=== PATIENT | female | born 2000 | race Caucasian/White ===

== ENCOUNTER → 2019-08-29 | Day surgery (SDC) | payer SELFPAY ==
[~2019-08-29] MED LIST: Bupivacaine 0.25% HCL 30 ML VIAL ONE; Dexamethasone 20 MG/5 ML VIAL ONE; Fentanyl 100 MCG/2 ML VIAL ONE; HYDROcodone/Acetaminophen 5/325 mg Tablet ONE; Lidocaine 1% PF 5 ML VIAL ONE; Lidocaine 1% w/Epinephrine 1:100K 20 ML VIAL ONE; Meperidine HCl/PF 25 MG/ML VIAL ONE; Ondansetron PF 4 MG/2 ML Vial ONE; PROPOFOL 200 MG/20 ML VIAL ONE; Succinylcholine Chloride 20 MG/ML 10 ml SYRINGE FS ONE
--- NOTE | 2019-08-29 20:34 | HP ---
CHIEF COMPLAINT: Right lower quadrant abdominal pain. HISTORY OF PRESENT ILLNESS: The patient is a 19-year-old female. She was seen at an outside facility where she underwent laboratory and radiologic studies. Although I have not seen the CT scan, verbal report from the emergency room physician is that there was evidence of a retrocecal appendix with stranding and inflammation and enlargement consistent with acute appendicitis. White blood cell count was elevated at 13,000. She is accepted in transfer from this facility for planned appendectomy. She tells me that she has had some degree of abdominal cramping or discomfort for about 4 days. It became much worse last night prompting her ER visit. She denies any vomiting or diarrhea. PAST MEDICAL HISTORY: None. PAST SURGICAL HISTORY: [place] tooth extraction. MEDICATIONS: None. ALLERGIES: NO KNOWN DRUG ALLERGIES. PERSONAL AND SOCIAL HISTORY: She is single with no children. She does not smoke and drinks alcohol occasionally. 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 Her boyfriend did ride here to the hospital this evening. REVIEW OF SYSTEMS: Otherwise unremarkable. FAMILY HISTORY: Noncontributory. PHYSICAL EXAMINATION: VITAL SIGNS: She is afebrile. Vital signs within normal limits. GENERAL: She is a well-developed, well-nourished, pleasant female, in no acute distress. She is 5 feet 3 inches tall, weighs 115 pounds. She is alert and oriented x3. HEAD, EYES, EARS, NOSE, AND THROAT: Unremarkable. NECK: Supple without mass or tenderness. LUNGS: Clear to auscultation throughout. CARDIAC: Regular rate and rhythm without murmur. ABDOMEN: Soft. Bowel sounds are present and normoactive. She does have focal tenderness, but no real guarding in the right lower quadrant. She does seem to have some tenderness around to the right flank consistent with a retrocecal location. EXTREMITIES: Unremarkable. ASSESSMENT: The patient with acute appendicitis. PLAN: Laparoscopic appendectomy. I have discussed the operation in detail with the patient as well as potential risks. She understands these and agrees to proceed at this time. She has already received an intravenous dosage of Zosyn at the [facility]. Job ID: [id number]
--- NOTE | 2019-08-29 21:51 | CON ---
DATE OF CONSULTATION: 08/29/2019 TIME: 2100 hours. REASON FOR CONSULTATION: Purulent salpingitis encountered at the time of laparoscopic appendectomy. HISTORY OF PRESENT ILLNESS: The patient was admitted by Dr. Cleaning from the emergency room for suspected appendicitis with right lower quadrant pain. He reports that the patient had a history of fever 3 weeks ago. No fever, white count of 13,000, no significant anorexia, and an exam that was consistent with appendicitis. Of note, the patient has an IUD in situ. The patient is sexually active. No previous history of STD. The patient was taken to the operating room for laparoscopic appendectomy. At that point in time, Dr. Cleaning encountered a normal-appearing appendix and mucopurulent distal fallopian tube discharge bilaterally. I presented to the operating room and observed the pelvis, right lower quadrant and liver. No evidence of Stalin Matt Cresencio syndrome was noted, the patient had mildly enlarged and erythematous fallopian tubes with some distal purulent discharge that drained into the cul-de-sac of [place]. The uterus was carefully lifted up by Dr. Cleaning and full inspection of pelvis revealed no evidence of uterine perforation from IUD. Report from the emergency room was no evidence of mucopurulent cervicitis. Dr. Cleaning and I discussed treatment and followup. As the patient has an IUD, there is some consideration and concern because of that, however, studies have shown that an uncomplicated PID, removal of the IUD at initial visit is not necessary unless the patient shows signs of toxicity or tubo-ovarian abscess. As this patient does not, we decided to leave the IUD in situ at this time. The patient received Zosyn as antibiotic prophylaxis and treatment for the appendectomy. Because of this antibiotic treatment, decided to go ahead and place the patient on doxycycline 100 p.o. b.i.d. x14 days, as well as Flagyl 500 p.o. b.i.d. x14 days. Flagyl would not be indicated with tubo-ovarian abscess and while this patient clearly does not have tubo-ovarian abscess at this time, considering her living in [place] and having traveled here as well as current difficulties with medical care secondary to the COVID crisis, I think it is donald to go ahead and place her on both antibiotics for 14 days. The patient will be seen back at [facility] with myself in approximately 10 to 14 days. We will consider ultrasound followup at that time. The patient will be given strong ER precautions for close followup. If she has worsening of pain or symptoms or develops fever at that point in time, would recommend removal of IUD as part of definitive treatment. These recommendations were transmitted to Dr. Cleaning. Job ID: [id number]
--- NOTE | 2019-08-30 10:38 | OP ---
DATE OF PROCEDURE: 08/29/2019 PREOPERATIVE DIAGNOSIS: Acute appendicitis. POSTOPERATIVE DIAGNOSIS: Appendiceal enlargement, suspected pelvic inflammatory disease. PROCEDURES PERFORMED: Laparoscopic appendectomy, aspiration of pelvic purulence, extensive pelvic irrigation. ANESTHESIA: General endotracheal. Intraoperative consultation with Dr. Paddy Pa. INDICATIONS: The patient is a 19-year-old female. She presented from an outside facility ([facility]), where she was evaluated for right lower quadrant abdominal pain. She was noted to have leukocytosis with a white blood cell count of 13,000. CT scan reportedly revealed evidence of acute appendicitis with a dilated appendix and periappendiceal stranding and inflammation. She presented at this time for laparoscopic appendectomy. DESCRIPTION OF OPERATION: Informed consent was obtained. The patient was taken to the operating room, where general endotracheal anesthesia was obtained with the patient in supine position. Rome catheter was placed, abdomen was prepped with ChloraPrep and draped in sterile fashion. Local anesthetic was infiltrated using a mixture of 1% lidocaine with epinephrine and 0.25% Marcaine. A 5 mm infraumbilical incision was created through which a Veress needle was passed into the peritoneal cavity, and pneumoperitoneum was established using carbon dioxide up to pressure of 15 mmHg. A 5 mm trocar port was passed through the same incision. A laparoscopic camera was passed through this port. Under direct vision, a 5 mm left lower quadrant port was placed as well as a 12 mm suprapubic port. Attention was turned to the right lower quadrant. The cecum was reflected medially and on the lateral aspect was noted a relatively non-inflamed appendix. It was definitely larger than a typical appendix that was nonadherent to any surrounding structures. There was some mild injection throughout the appendix. I grasped the mesoappendix and took this down using electrocautery to skeletonize the base of the appendix. The appendix was divided at its base between PDS Endoloop ties and the appendiceal stump was cauterized. The appendix was placed in a specimen retrieval sac, where it was removed through the suprapubic port. The small bowel was then traced about 100 cm retrograde without finding of any abnormality such as a Meckel's diverticulum. Attention was then turned to the pelvis. The patient had abnormal pelvic anatomy. Initially, I could see none of the typical female structures. I was eventually able to identify the right fallopian tube and reflected superiorly and identified a normal-appearing ovary. The tube itself, however, was markedly thickened with evidence of inflammation. There was no purulence seen associated with the fimbria. Attention was then turned to the left fallopian tube, which, once the colon was delivered out of the pelvis was again identified and again noted to be edematous and somewhat inflamed, but again without purulence at the fimbria. The left ovary was also within normal limits. With some degree of difficulty I was eventually able to elevate the uterus and as I did so, there was obvious purulence within the pelvis. The uterus had been a sort of stuck down posteriorly by this inflammatory change. I aspirated this purulence and submitted it for culture. I then copiously irrigated the area. I had asked Dr. Pa to present to the room to evaluate the gynecologic abnormalities. He agreed that this was a coincide of the clinical picture of pelvic inflammatory disease. At his request and suggestion, I elevated the uterus to examine it circumferentially as the patient had a known intrauterine device. There was no evidence of uterine perforation either on the anterior or posterior aspects. The right lower quadrant pelvis was again further irrigated. All irrigant was aspirated. Irrigant was aspirated from throughout the abdomen. The fascial defect at the 12 mm port site was closed with 0 Vicryl suture using a GraNee needle. All ports and instruments were removed under direct vision. Pneumoperitoneum was carefully evacuated. A 0.25% Marcaine with epinephrine was infiltrated into each port site. Skin edges were approximated with 4-0 Monocryl subcuticular suture. Dermabond was placed externally. There were no complications. The patient tolerated the procedure well, and was taken to recovery room in stable condition. Job ID: [id number]
== END ==
LOC: SDC 19:10
PROVIDERS: ATTEND Specialist
PROC: 0DTJ4ZZ Resection of Appendix, Percutaneous Endoscopic Approach (ICD-10-PCS; principal; 2019-08-29)
DX: K35.30 Acute appendicitis with localized peritonitis, without perforation or gangrene (principal); N70.91 Salpingitis, unspecified; Z97.5 Presence of (intrauterine) contraceptive device
CPT/HCPCS: 87070; 87205; 88304; J1100; J2001; J2175; J2405; J2704; J3010; S0020